=== PATIENT | female | born 1935 | race Caucasian/White ===

== ENCOUNTER 2016-06-10 12:35 | Inpatient (IN) | payer OTHER ==
[~2016-06-10] VITALS: Ht 152.4 cm; Wt 73.0 kg
[~2016-06-10 12:35] MED LIST: ACET-1311 PO; ACYC400T PO; ASPCH81X PO; CALC-220 PO; CRAN500C2 PO; LEVO75TA PO; LSN/2025 PO; MAGN400T24 PO; METR0.7527 TOP; MULT-188 PO; MULT-614 PO; OMEG500C2 PO; PRLSR20 PO
[2016-06-10] MEDS ORDERED: SODIUM CHLORIDE 0.9% 1000ML 250 ML IV STA (13:14)
[2016-06-10] MEDS ORDERED: SODIUM CHLORIDE 0.9% 1000ML 1,000 ML IV STA (13:14)
--- NOTE | 2016-06-10 13:23 | EMERGENCY ROOM VISIT NOTE ---
History Report prepared by Jaimie: Roseanna Almeida Under the Supervision of: Dr. Javid Grimes M.D. First contact with patient: 13:09 Chief Complaint: GI ASSESSMENT Stated Complaint: STARTED W/STOMACH CRAMPS,HAD BM &THEN DIARRHEA History of Present Illness The patient is an 81 year old female who presents to the Emergency Room with complaints of persistent rectal bleeding that began prior to arrival. He currently rates his discomfort as a 5/10 in severity. Per records, the patient was evaluated at her PCP's office today. She has been complaining of lower abdominal cramping, and then had diarrhea. The patient notes that she has noticed bright red blood in the toilet since the diarrhea and each time she goes to the bathroom. She denies any rectal pain, vomiting, or fever. The patient was found to have internal hemorrhoids. The patient states that she takes aspirin daily, but denies being on any blood thinners. Source of History: patient, spouse/significant other Onset: prior to arrival Position: other (rectal) Symptom Intensity: 5/10 Quality: other (bleeding) Timing: other (persistent) Associated Symptoms: + abdominal pain, + diarrhea, No fevers, No vomiting Review of Systems See HPI for pertinent positives & negatives. A total of 10 systems reviewed and were otherwise negative. Past Medical & Surgical Medical Problems: (1) Hypothyroidism (2) Kidney disease Old medical records were reviewed. Nurse's notes were reviewed and I agree with. Family History Diabetes mellitus FHx: cancer Hypertension Social History Smoking Status: Never Smoker Alcohol Use: none Marital Status: Housing Status: lives with family Occupation Status: retired Current/Historical Medications Scheduled Aspirin (Aspirin Chewable), 81 MG PO DAILY Cranberry (Vaccinium Macrocarp (Cranberry), 500 MG PO DAILY Hctz/Lisinopril (Lisinopril/Hctz 20/25 Mg), 1 TAB PO DAILY Levothyroxine Sodium (Synthroid), 75 MCG PO DAILY Metronidazole (Topical) (Metrogel), 1 APPLN TOP BID Multiple Vitamins W/ Minerals (Ocuvite), 1 TABLET PO DAILY Multiple Vitamins W/ Minerals (Centrum Silver Ultra Wome), 1 TABLET PO DAILY Jeddo-3 Fatty Acids (Fish Oil), 1,000 MG PO BID Omeprazole (Prilosec), 20 MG PO DAILY Rosuvastatin Calcium (Crestor), 1 TAB PO BID Scheduled PRN Acetaminophen (Tylenol), 650 MG PO Q6H PRN Acyclovir (Acyclovir), 400 MG PO BID PRN Miscellaneous Medications Famotidine (Pepcid), 20 MG PO Loratadine (Loratadine) Allergies Coded Allergies: No Known Allergies (Verified , 06/10/16) Physical Exam Vital Signs Date Time Temp Pulse Resp B/P Pulse Ox O2 Delivery O2 Flow Rate FiO2 06/10/16 15:45 80 18 121/59 99 Room Air 06/10/16 14:03 86 18 132/67 97 Room Air 06/10/16 12:49 36.7 96 18 130/72 99 Room Air Physical Exam General: Well developed well nourished, non-ill appearing older female in no acute distress, breathing comfortably on room air. Normal speech HEENT: Normal cephalic atraumatic. Pupils are equal round and reactive to light. Sclerae are anicteric. Extraocular movements are intact. Oropharynx is pink with moist mucous membranes. No swelling of the mouth lips or tongue. Neck: Supple with a midline trachea. No meningeal signs or stiffness, no JVD or bruits. No Stridor. Chest: Clear to auscultation bilaterally. No wheezes or rhonchi. No increased work of breathing. Heart: regular rate and rhythm. Abdomen: Soft nontender, nondistended without rebound guarding or rigidity. Extremities: No cyanosis clubbing or edema. No calf tenderness or assymetry Spine/Back. Non tender to palpation. No CVA tenderness Skin: Good turgor without rashes. Neurologic exam: Cranial nerves two through 12 are intact. Motor and sensation are intact and symmetrical throughout. Medical Decision & Procedures ER Provider Diagnostic Interpretation: CT results as stated below per my review and radiologist interpretation: CT SCAN OF THE ABDOMEN AND PELVIS WITH IV CONTRAST CLINICAL HISTORY: Lower abdominal pain. Diarrhea. COMPARISON STUDY: MRCP dated 05/18/2012. TECHNIQUE: Following the IV administration of 94 cc of Optiray 320, CT scan of the abdomen and pelvis is performed from the lung bases to the proximal femora. Images are reviewed in the axial, sagittal, and coronal planes. IV contrast was administered without complication. Automated dose control exposure was utilized. CT DOSE: 526.68 mGy.cm FINDINGS: Lung bases: The heart is normal in size and without pericardial effusion. The mitral annulus is densely calcified. The lung bases are clear noting dependent atelectasis. Liver: The contrast-enhanced liver is normal in size, contour, and attenuation. There is no intrahepatic biliary ductal dilatation. The hepatic veins and portal veins are patent. Gallbladder: Surgically absent noting clips in the gallbladder fossa. Spleen: Normal in size and attenuation. Pancreas: Moderately atrophic and grossly unremarkable. Adrenal glands: Unremarkable. Kidneys: The contrast enhanced kidneys demonstrate cortical atrophy and are without hydronephrosis. The kidneys enhance symmetrically. Abdominal vasculature: The abdominal aorta is normal in course and caliber noting moderate atherosclerotic calcification. Bowel: The small bowel and colon are normal in course and caliber. There is a long segment of colonic wall thickening and edema seen extending from the distal transverse colon to the distal descending colon. There is associated pericolonic inflammation as well as trace pericolic fluid. The appearance is consistent with a nonspecific colitis. The appendix is well-visualized and normal. Peritoneum: There is no intraperitoneal free air or abdominal ascites. Lymphadenopathy: None. Pelvic viscera: The bladder, uterus, and adnexa are normal as visualized. There are prominent gonadal vessels in the pelvis. Calcified phleboliths are observed. Skeletal structures: The skeletal structures are osteopenic. Sclerotic change is observed in the sacroiliac joints and pubic symphysis. There is mild lumbosacral spondylosis. No lytic or blastic lesions are seen. IMPRESSION: Findings are consistent with nonspecific colitis of the left colon. The could be on an infectious, inflammatory, or ischemic basis. Clinical correlation will be required. Electronically signed by: Kunal Monteiro M.D. 06/10/2016 3:44 PM Dictated Date/Time: 06/10/2016 3:39 PM Laboratory Results 06/10/16 13:32 Red Blood Count 3.91, Mean Corpuscular Volume 92.6, Mean Corpuscular Hemoglobin 31.2, Mean Corpuscular Hemoglobin Concent 33.7, Mean Platelet Volume 9.9, Neutrophils (%) (Auto) 61.9, Lymphocytes (%) (Auto) 25.0, Monocytes (%) (Auto) 11.1, Eosinophils (%) (Auto) 1.5, Basophils (%) (Auto) 0.3, Neutrophils # (Auto ) 6.32, Lymphocytes # (Auto) 2.55, Monocytes # (Auto) 1.13, Eosinophils # (Auto ) 0.15, Basophils # (Auto) 0.03 06/10/16 13:32 Test 06/10/16 13:32 White Blood Count 10.20 K/uL (4.8-10.8) Red Blood Count 3.91 M/uL (4.2-5.4) Hemoglobin 12.2 g/dL (12.0-16.0) Hematocrit 36.2 % (37-47) Mean Corpuscular Volume 92.6 fL (80-100) Mean Corpuscular Hemoglobin 31.2 pg (25-34) Mean Corpuscular Hemoglobin Concent 33.7 g/dl (32-36) Platelet Count 320 K/uL (130-400) Mean Platelet Volume 9.9 fL (7.4-10.4) Neutrophils (%) (Auto) 61.9 % Lymphocytes (%) (Auto) 25.0 % Monocytes (%) (Auto) 11.1 % Eosinophils (%) (Auto) 1.5 % Basophils (%) (Auto) 0.3 % Neutrophils # (Auto) 6.32 K/uL (1.4-6.5) Lymphocytes # (Auto) 2.55 K/uL (1.2-3.4) Monocytes # (Auto) 1.13 K/uL (0.11-0.59) Eosinophils # (Auto) 0.15 K/uL (0-0.5) Basophils # (Auto) 0.03 K/uL (0-0.2) RDW Standard Deviation 48.6 fL (36.4-46.3) RDW Coefficient of Variation 14.3 % (11.5-14.5) Immature Granulocyte % (Auto) 0.2 % Immature Granulocyte # (Auto) 0.02 K/uL (0.00-0.02) Prothrombin Time 11.3 SECONDS (9.0-12.0) Prothromb Time International Ratio 1.1 (0.9-1.1) Activated Partial Thromboplast Time 26.1 SECONDS (21.0-31.0) Partial Thromboplastin Ratio 1.0 Anion Gap 5.0 mmol/L (3-11) Est Creatinine Clear Calc Drug Dose 29.1 ml/min Estimated GFR () 41.0 Estimated GFR (Non- 35.4 BUN/Creatinine Ratio 23.2 (10-20) Calcium Level 9.1 mg/dl (8.5-10.1) Total Bilirubin 0.9 mg/dl (0.2-1) Direct Bilirubin 0.2 mg/dl (0-0.2) Aspartate Amino Transf (AST/SGOT) 15 U/L (15-37) Alanine Aminotransferase (ALT/SGPT) 27 U/L (12-78) Alkaline Phosphatase 107 U/L (45-117) Total Protein 7.1 gm/dl (6.4-8.2) Albumin 3.6 gm/dl (3.4-5.0) Lipase 112 U/L (73-393) Laboratory studies as stated above per my review. Medications Administered Medications (Trade) Dose Ordered Sig/Matti Route Start Time Stop Time Status Last Admin Dose Admin Sodium Chloride 250 ml @ 999 mls/hr Q16M STAT IV 06/10/16 13:14 06/10/16 13:29 DC 06/10/16 14:01 999 MLS/HR Sodium Chloride (Nss 1000ml) 1,000 ml @ 100 mls/hr Q10H STAT IV 06/10/16 13:14 06/10/16 23:13 06/10/16 14:01 100 MLS/HR ED Course 1310: Past medical records reviewed. The patient was evaluated in room B12B, and a complete history and physical examination were performed. 1314: Ordered Sodium Chloride 1000 ml @ 100 mls/hr IV, Sodium Chloride 250 ml @ 999 mls/hr IV. 1404: I reevaluated the patient at this time. She is going to have a CT scan. 1552: I reevaluated the patient and she is resting comfortably. I discussed all the exam findings with her and I discussed the treatment plan. She verbalized complete understanding and agreement. She will be evaluated for further treatment. 1644: I discussed the patients case with Avel Whitmore. She is going to evaluate the patient for further treatment. Medical Decision Differentials include, but are not limited to; GI bleed, hemorrhoid, anemia, diverticulitis, electrolyte or metabolic abnormality. This patient comes in as described above. She sent over from the primary care' s office after having abdominal cramping elevated white count and GI bleeding. This started yesterday. She had multiple episodes of bloody stool after having some constipation than diarrhea. She's had some cramping she seems a feeling a lot better at present. She is afebrile. She's been normotensive and has had stable vital signs. IV access established and she was hydrated with IV normal saline. Multiple blood testing was obtained. Her white count is not elevated. She has no significant anemia. She's no acute electrolyte or metabolic abnormalities. I did a CAT scan which shows colitis the left:. I do think she needs to be admitted for treatment and observation of GI bleeding and colitis. Her abdomen is non-tender at this point. I did consult the [facility] hospitalist and she will be seen in the ER. Consults Time Called: 163 Consulting Physician: Avel Whitmore Returned Call: 1644 I discussed the patients case with Avel Whitmore. She is going to evaluate the patient for further treatment. Impression Primary Impression: GI bleed Additional Impression: Colitis Scribe Attestation The scribe's documentation has been prepared under my direction and personally reviewed by me in its entirety. I confirm that the note above accurately reflects all work, treatment, procedures, and medical decision making performed by me. Departure Information Dispostion Being Evaluated By Hospitalist Referrals Marisol Mcnair M.D. (PCP) Problem Qualifiers
[2016-06-10 13:47] LABS: BASO % 0.3 %; BASO ABS # 0.03 K/uL (0-0.2); COMPLETE YES; EOS % 1.5 %; HEMATOCRIT 36.2 % (37-47); IG% 0.2 %; LYMPH ABS # 2.55 K/uL (1.2-3.4); MEAN CELL VOLUME 92.6 fL (80-100); MEAN CORPUSCULAR HEMOGLOBIN 31.2 pg (25-34); MEAN CORPUSCULAR HGB CONC 33.7 g/dl (32-36); MEAN PLATELET VOLUME 9.9 fL (7.4-10.4); MONO % 11.1 %; NEUT % 61.9 %; PLATELET COUNT 320 K/uL (130-400); RED BLOOD COUNT 3.91 M/uL (4.2-5.4)
[2016-06-10] MEDS ORDERED: ROSU5TAB PO (13:55)
[2016-06-10] MEDS ORDERED: LORA10CA10 (13:55)
[2016-06-10] MEDS ORDERED: FAMO20TA11 PO (13:55)
[2016-06-10 14:07] LABS: INR 1.1 (0.9-1.1); PROTHROMBIN TIME (PATIENT) 11.3 SECONDS (9.0-12.0)
[2016-06-10 14:13] LABS: BUN/CREATININE RATIO 23.2 (10-20); CALCIUM 9.1 mg/dl (8.5-10.1); CREATININE 1.4 mg/dl (0.60-1.20); POTASSIUM 4.2 mmol/L (3.5-5.1)
[2016-06-10] MEDS ORDERED: OPTIRAY 320 IV PRN (14:15)
--- NOTE | 2016-06-10 15:47 | DIAGNOSTIC IMAGING REPORT ---
CT SCAN OF THE ABDOMEN AND PELVIS WITH IV CONTRAST CLINICAL HISTORY: Lower abdominal pain. Diarrhea. COMPARISON STUDY: MRCP dated 05/18/2012. TECHNIQUE: Following the IV administration of 94 cc of Optiray 320, CT scan of the abdomen and pelvis is performed from the lung bases to the proximal femora. Images are reviewed in the axial, sagittal, and coronal planes. IV contrast was administered without complication. Automated dose control exposure was utilized. CT DOSE: 526.68 mGy.cm FINDINGS: Lung bases: The heart is normal in size and without pericardial effusion. The mitral annulus is densely calcified. The lung bases are clear noting dependent atelectasis. Liver: The contrast-enhanced liver is normal in size, contour, and attenuation. There is no intrahepatic biliary ductal dilatation. The hepatic veins and portal veins are patent. Gallbladder: Surgically absent noting clips in the gallbladder fossa. Spleen: Normal in size and attenuation. Pancreas: Moderately atrophic and grossly unremarkable. Adrenal glands: Unremarkable. Kidneys: The contrast enhanced kidneys demonstrate cortical atrophy and are without hydronephrosis. The kidneys enhance symmetrically. Abdominal vasculature: The abdominal aorta is normal in course and caliber noting moderate atherosclerotic calcification. Bowel: The small bowel and colon are normal in course and caliber. There is a long segment of colonic wall thickening and edema seen extending from the distal transverse colon to the distal descending colon. There is associated pericolonic inflammation as well as trace pericolic fluid. The appearance is consistent with a nonspecific colitis. The appendix is well-visualized and normal. Peritoneum: There is no intraperitoneal free air or abdominal ascites. Lymphadenopathy: None. Pelvic viscera: The bladder, uterus, and adnexa are normal as visualized. There are prominent gonadal vessels in the pelvis. Calcified phleboliths are observed. Skeletal structures: The skeletal structures are osteopenic. Sclerotic change is observed in the sacroiliac joints and pubic symphysis. There is mild lumbosacral spondylosis. No lytic or blastic lesions are seen. IMPRESSION: Findings are consistent with nonspecific colitis of the left colon. The could be on an infectious, inflammatory, or ischemic basis. Clinical correlation will be required. Electronically signed by: Kunal Monteiro M.D. 06/10/2016 3:44 PM Dictated Date/Time: 06/10/2016 3:39 PM
[2016-06-10] MEDS ORDERED: ONDANSETRON INJ 2 MG/ML 2 ML VIAL IV PRN (17:45)
[2016-06-10] MEDS ORDERED: TYL325X PO (17:53)
[2016-06-10] MEDS ORDERED: LORA-749 PO (17:53)
[2016-06-10] MEDS ORDERED: CRS10 PO (17:53)
[2016-06-10] MEDS ORDERED: FLUO0.0566 TOP (17:53)
--- NOTE | 2016-06-10 18:43 | History and Physical ---
History & Physical Date & Time of Service: Jun 10, 2016 at 17:57 Chief Complaint: Started W/Stomach Cramps,Had Bm &Then Diarrhea Primary Care Physician: Marisol Mcnair M.D. History of Present Illness Source: patient, clinic records This is an 81 year old female with PMH of HTN, HL, CKD stage III, hypothyroidism , and other problems listed below who presents to the ED with rectal bleeding. Patient was in her usual state of health until yesterday at 1 pm she developed low abdominal cramping with the urge to defecate. She strained for a hard BM and after that developed multiple episodes of diarrhea. Initially had stool then changed to blood. She noticed a "blob" of red blood in the toilet and bright red blood on the toilet tissue. This happened twice yesterday evening, 1- 2x overnight, and twice this am with last episode at 9 am. Pt was seen in clinic by Shani Lorenzo PA-C today. Per her note rectal exam showed non- thrombosed external hemorrhoid, internal hemorrhoid also palpated, FOBT negative. Outpatient labs today showed WBC of 12K so patient was sent to the ER. Patient states abdominal cramping is intermittent today. No cramps at present. Denies post-prandial abdominal pain. No fever, chills, dizziness, fatigue, weight loss, oral sores, swallowing difficulty, chest pain, cough, SOB , reflux, nausea, vomiting, rectal pain, melena, urinary changes. Pt takes daily baby aspirin but no other NSAIDs or blood thinner. Patient was in [place] yesterday visiting family when symptoms started. She ate cambodian toast for breakfast yesterday and pulled pork sandwich for lunch. also had the pork and felt nauseous but no diarrhea. Pt only ate crackers today. No recent antibiotics. Pt has hx of gallstone pancreatitis and underwent laparoscopic cholecystectomy in 2012. No other other abdominal surgery. No hx of prior GIB. [place] in 2008 showed adenomatous polyp. [place] by Dr. Vilchis in 2012 showed internal hemorrhoids, otherwise normal exam. Past Medical/Surgical History Medical Problems: (1) CKD (chronic kidney disease), stage III Status: Chronic (2) Dyslipidemia Status: Chronic (3) GERD (gastroesophageal reflux disease) Status: Chronic (4) Hypertension Status: Chronic (5) Hypertensive heart disease Status: Chronic (6) Hypothyroidism Status: Chronic (7) Osteoporosis Status: Chronic Surgical Problems: (1) S/P colonoscopy Permanent Comment: 01/2013- internal hemorrhoids, otherwise normal Status: Chronic (2) S/P colonoscopy with polypectomy Permanent Comment: 2008- polyp x 1 adenomatous Status: Chronic (3) S/P dilatation and curettage Status: Chronic (4) S/P total knee arthroplasty Status: Chronic Family History Diabetes mellitus FH: colon cancer SON ( of colon CA) FHx: cancer Hypertension Social History Smoking Status: Never Smoker Alcohol Use: none Drug Use: none Marital Status: Housing status: lives with significant other Occupational Status: retired Immunizations History of Influenza Vaccine: Yes History of Tetanus Vaccine?: Yes History of Pneumococcal: Yes History of Hepatitis B Vaccine: No Multi-Drug Resistant Organisms History of MDRO: No Allergies Coded Allergies: No Known Allergies (Verified , 06/10/16) Home Medications Scheduled Aspirin (Aspirin Chewable), 81 MG PO DAILY Famotidine (Pepcid), 20 MG PO BID Hctz/Lisinopril (Lisinopril/Hctz 20/25 Mg), 1 TAB PO DAILY Levothyroxine Sodium (Synthroid), 75 MCG PO DAILY Loratadine & Pseudoephedrine (Claritin-D 24 Hour), 1 TAB PO DAILY Metronidazole (Topical) (Metrogel), 1 APPLN TOP BID Multiple Vitamins W/ Minerals (Centrum Silver Ultra Wome), 1 TABLET PO DAILY Rosuvastatin Calcium (Crestor), 10 MG PO 2XWK Scheduled PRN Acetaminophen (Tylenol), 650 MG PO Q6 PRN for Pain Acyclovir (Acyclovir), 400 MG PO BID PRN Fluocinonide (Fluocinonide), 1 APPLN TOP BID PRN for rash Review of Systems Ten point ROS performed with pertinent positives and negatives noted in HPI. Physical Exam Vital Signs Date Time Temp Pulse Resp B/P Pulse Ox O2 Delivery O2 Flow Rate FiO2 06/10/16 15:45 80 18 121/59 99 Room Air 06/10/16 14:03 86 18 132/67 97 Room Air 06/10/16 12:49 36.7 96 18 130/72 99 Room Air General Appearance: WD/WN, no apparent distress, + pertinent finding (pleasant alert 81 year old female, appears comfortable lying in bed, no distress) Head: normocephalic, atraumatic Eyes: normal inspection, sclerae normal ENT: hearing grossly normal, pharynx normal Neck: supple Respiratory/Chest: lungs clear, normal breath sounds, no respiratory distress, no accessory muscle use Cardiovascular: regular rate, rhythm, no murmur Abdomen/GI: normal bowel sounds, non tender, soft Extremities/Musculoskelatal: no calf tenderness, normal capillary refill, no pedal edema, + pertinent finding (DP pulses 2+) Neurologic/Psych: alert, normal mood/affect, oriented x 3, + pertinent finding (grossly nonfocal ) Skin: normal color, warm/dry, + pertinent finding (right cheek tiny flat area of erythema s/p recent skin bx) Diagnostics Laboratory Results Results Past 24 Hours Test 06/10/16 13:32 Range/Units White Blood Count 10.20 4.8-10.8 K/uL Red Blood Count 3.91 4.2-5.4 M/uL Hemoglobin 12.2 12.0-16.0 g/dL Hematocrit 36.2 37-47 % Mean Corpuscular Volume 92.6 80-100 fL Mean Corpuscular Hemoglobin 31.2 25-34 pg Mean Corpuscular Hemoglobin Concent 33.7 32-36 g/dl Platelet Count 320 130-400 K/uL Mean Platelet Volume 9.9 7.4-10.4 fL Neutrophils (%) (Auto) 61.9 % Lymphocytes (%) (Auto) 25.0 % Monocytes (%) (Auto) 11.1 % Eosinophils (%) (Auto) 1.5 % Basophils (%) (Auto) 0.3 % Neutrophils # (Auto) 6.32 1.4-6.5 K/uL Lymphocytes # (Auto) 2.55 1.2-3.4 K/uL Monocytes # (Auto) 1.13 0.11-0.59 K/uL Eosinophils # (Auto) 0.15 0-0.5 K/uL Basophils # (Auto) 0.03 0-0.2 K/uL RDW Standard Deviation 48.6 36.4-46.3 fL RDW Coefficient of Variation 14.3 11.5-14.5 % Immature Granulocyte % (Auto) 0.2 % Immature Granulocyte # (Auto) 0.02 0.00-0.02 K/uL Prothrombin Time 11.3 9.0-12.0 SECONDS Prothromb Time International Ratio 1.1 0.9-1.1 Activated Partial Thromboplast Time 26.1 21.0-31.0 SECONDS Partial Thromboplastin Ratio 1.0 Sodium Level 140 136-145 mmol/L Potassium Level 4.2 3.5-5.1 mmol/L Chloride Level 103 98-107 mmol/L Carbon Dioxide Level 32 21-32 mmol/L Anion Gap 5.0 3-11 mmol/L Blood Urea Nitrogen 32 7-18 mg/dl Creatinine 1.40 0.60-1.20 mg/dl Est Creatinine Clear Calc Drug Dose 29.1 ml/min Estimated GFR () 41.0 Estimated GFR (Non- 35.4 BUN/Creatinine Ratio 23.2 10-20 Random Glucose 126 70-99 mg/dl Calcium Level 9.1 8.5-10.1 mg/dl Total Bilirubin 0.9 0.2-1 mg/dl Direct Bilirubin 0.2 0-0.2 mg/dl Aspartate Amino Transf (AST/SGOT) 15 15-37 U/L Alanine Aminotransferase (ALT/SGPT) 27 12-78 U/L Alkaline Phosphatase 107 45-117 U/L Total Protein 7.1 6.4-8.2 gm/dl Albumin 3.6 3.4-5.0 gm/dl Lipase 112 73-393 U/L Diagnostic Radiology CT SCAN OF THE ABDOMEN AND PELVIS WITH IV CONTRAST CLINICAL HISTORY: Lower abdominal pain. Diarrhea. COMPARISON STUDY: MRCP dated 05/18/2012. TECHNIQUE: Following the IV administration of 94 cc of Optiray 320, CT scan of the abdomen and pelvis is performed from the lung bases to the proximal femora. Images are reviewed in the axial, sagittal, and coronal planes. IV contrast was administered without complication. Automated dose control exposure was utilized. CT DOSE: 526.68 mGy.cm FINDINGS: Lung bases: The heart is normal in size and without pericardial effusion. The mitral annulus is densely calcified. The lung bases are clear noting dependent atelectasis. Liver: The contrast-enhanced liver is normal in size, contour, and attenuation. There is no intrahepatic biliary ductal dilatation. The hepatic veins and portal veins are patent. Gallbladder: Surgically absent noting clips in the gallbladder fossa. Spleen: Normal in size and attenuation. Pancreas: Moderately atrophic and grossly unremarkable. Adrenal glands: Unremarkable. Kidneys: The contrast enhanced kidneys demonstrate cortical atrophy and are without hydronephrosis. The kidneys enhance symmetrically. Abdominal vasculature: The abdominal aorta is normal in course and caliber noting moderate atherosclerotic calcification. Bowel: The small bowel and colon are normal in course and caliber. There is a long segment of colonic wall thickening and edema seen extending from the distal transverse colon to the distal descending colon. There is associated pericolonic inflammation as well as trace pericolic fluid. The appearance is consistent with a nonspecific colitis. The appendix is well-visualized and normal. Peritoneum: There is no intraperitoneal free air or abdominal ascites. Lymphadenopathy: None. Pelvic viscera: The bladder, uterus, and adnexa are normal as visualized. There are prominent gonadal vessels in the pelvis. Calcified phleboliths are observed. Skeletal structures: The skeletal structures are osteopenic. Sclerotic change is observed in the sacroiliac joints and pubic symphysis. There is mild lumbosacral spondylosis. No lytic or blastic lesions are seen. IMPRESSION: Findings are consistent with nonspecific colitis of the left colon. The could be on an infectious, inflammatory, or ischemic basis. Clinical correlation will be required. Impression Assessment and Plan COLITIS CT a/p shows nonspecific colitis of the left colon ? 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 diff toxin Received IVF's in ER Will place on empiric Cipro and Flagyl Clear liquid diet Consult GI RECTAL BLEEDING Likely lower GI bleeding due to colitis vs. hemorrhoidal bleeding Hemodynamically stable; Hg stable- 12.2 Rectal exam in clinic today- non-thrombosed external hemorrhoid, internal hemorrhoid also palpated, FOBT negative Last colonoscopy in 2012 showed internal hemorrhoids, otherwise normal No further bleeding since 9 am today Hold aspirin Recheck H/H at 2100 GERD Controlled per patient Continue famotidine HYPERTENSION BP is stable Continue lisinopril Hold HCTZ for now to avoid dehydration CKD STAGE III Creat is 1.4, stable- was 1.3 recent outpatient lab, runs 1.1-1.4 Monitor renal function DYSLIPIDEMIA Continue statin HYPOTHYROIDISM Continue levothyroxine DVT PROPHYLAXIS SCD's due to rectal bleeding CODE STATUS DNR per my discussion with the patient DISPOSITION Follows with Dr. Mcnair for primary care Patient seen in collaboration with Dr. Renner. Please see her addendum. I have seen and examined the patient and have discussed the case with the provider above. The patient is presenting with an acute L sided colitis with willian-umbilical to L sided abdominal tenderness on exam that is improved with bowel movement. Food borne illness is less likely, however, acute diverticulitis may be present. No recent use of antibiotics making c-diff less likely but is still being checked. Ischemic colitis is also a possibility. No obvious hypotensive episodes recently or illnesses. Lactate pending and IVF were ordered overnight to maintain good blood perfusion. Agree with Cipro/ Flagyl in either case. IBD is possible but less likely in the setting of a normal colonoscopy in recent years and no extra-GI symptoms. Appreciate GI consult with recs. Renner, DO Level of Care Med/Surg Resuscitation Status DO NOT RESUSCITATE VTE Prophylaxis VTE Risk Assessment Done? Y/N: Yes Risk Level: Moderate Given or contraindicated: SCD's, Contraindicated
[2016-06-10] MEDS ORDERED: IV FLUIDS COMPLETED PRN (18:45)
[2016-06-10 19:10] VITALS: BP 113/67; PULSE 91; TEMP 36.5; O2SAT 99; Ht 152.4 cm; Wt 73.0 kg
[2016-06-10] MEDS: CIPROFLOXACIN / D5W 400 MG in PREMIXED IN D5W 200 ML IV SCH (20:21)
[2016-06-10] MEDS: METRONIDAZOLE / NSS 500 MG in PREMIXED NSS 100 ML IV SCH (20:21)
[2016-06-10] MEDS ORDERED: NURSING VERBAL MED ORDER ONE ×2 (21:00)
[2016-06-10] MEDS ORDERED: ROSUVASTATIN CALCIUM 10 MG TAB PO SCH (21:00)
[2016-06-10] MEDS ORDERED: MoRPHine SULFATE 2 MG/ML CARP IV PRN (21:15)
[2016-06-10 21:21] LABS: HEMATOCRIT 36.1 % (37-47)
[2016-06-10] MEDS: ACETAMINOPHEN 325 MG TAB PO PRN (21:42)
[2016-06-10] MEDS: FAMOTIDINE 20 MG TAB PO SCH (21:43)
[2016-06-10] MEDS: METRONIDAZOLE 0.75% TOPICAL GEL 45 GM TUBE TOP SCH (21:43)
[2016-06-10 22:26] VITALS: O2SAT 95
[2016-06-10 23:15] VITALS: BP 100/66; PULSE 84; TEMP 36.7; O2SAT 94
[2016-06-11] VITALS (8 sets, daily range): BP systolic 96–150; BP diastolic 61–92; PULSE 62–87; TEMP 36.3–36.7; O2SAT 91–97
[2016-06-11] MEDS: SODIUM CHLORIDE 0.9% 1000ML 1,000 ML IV SCH ×2 (01:25→07:41)
[2016-06-11] MEDS: METRONIDAZOLE / NSS 500 MG in PREMIXED NSS 100 ML IV SCH ×3 (04:37→20:39)
[2016-06-11 07:08] LABS: HEMATOCRIT 33.7 % (37-47); MEAN CELL VOLUME 92.8 fL (80-100); MEAN CORPUSCULAR HEMOGLOBIN 30.6 pg (25-34); MEAN CORPUSCULAR HGB CONC 32.9 g/dl (32-36); MEAN PLATELET VOLUME 9.7 fL (7.4-10.4); PLATELET COUNT 308 K/uL (130-400); RED BLOOD COUNT 3.63 M/uL (4.2-5.4); WHITE BLOOD COUNT 7.88 K/uL (4.8-10.8)
[2016-06-11] MEDS: LEVOTHYROXINE 75 MCG TAB PO SCH (07:40)
[2016-06-11 07:52] LABS: BUN/CREATININE RATIO 18.7 (10-20); CALCIUM 8.1 mg/dl (8.5-10.1); CREATININE 0.99 mg/dl (0.60-1.20); POTASSIUM 3.7 mmol/L (3.5-5.1)
[2016-06-11] MEDS: CIPROFLOXACIN / D5W 400 MG in PREMIXED IN D5W 200 ML IV SCH ×2 (09:05→20:39)
[2016-06-11] MEDS: CEROVITE ADV FORMULA TAB PO SCH (09:06)
[2016-06-11] MEDS: LORATADINE/PSEUDOEPHEDRINE 1 TAB TABCR PO SCH (09:06)
[2016-06-11] MEDS: LISINOPRIL 20 MG TAB PO SCH (09:06)
[2016-06-11] MEDS: FAMOTIDINE 20 MG TAB PO SCH ×2 (09:06→20:40)
[2016-06-11] MEDS: METRONIDAZOLE 0.75% TOPICAL GEL 45 GM TUBE TOP SCH ×2 (09:07→20:40)
--- NOTE | 2016-06-11 10:43 | Gastrointestinal Consultation ---
Gastrointestinal Consultation Date of Consultation: Jun 11, 2016 Attending Physician: Seema Mancilla Consulting Physician: Gabriel Pimentel Reason for Consultation: Colitis History of Present Illness Patient is a 81 year old female w PMHx of HTN, hyperlipidemia, CKD III, hypothyroidism, GERD, osteoporosis who was referred to ED by ANA CRISTINA Chavis for rectal bleeding and increased WBC on outpt labs. Pt was at [place] on Wednesday. Had pulled pork sandwich for lunch and felt a little nauseous. Had taken a walk after that, then after walk had lower abd cramping. Went to bathroom to defecate and had to strain a lot to produce a hard stool. She later on continued to have urgency to defecate and went to bathroom again, had semi liquid like stool mixed w blood. Also noted bright red blood when wiping. She continues to have BRBPR q2hrs later on that day. By night decided to come back to [place] to eventually be evaluated by PCP here on Wednesday. Came to see Ms. Lorenzo in [facility] outpt clinic on Wednesday. She had rectal exam which showed ext/int hemorrhoids, FOBT negative. Labs showed stable H/H Cr up to 1.4, WBC 12 thus she was referred to ED for further eval. Eval in ED showed WBC 10, H/H 12/. No coagulopathy. Cr 1.4, LFTs, Lipase normal. CT abd/pelvis showed long segment colonic wall thickening and edema extending from distal transverse colon to distal descending colon, pericolonic inflammation and trace pericolic fluid. She was then admitted for further workup. Started on IVF, Cipro/Flagyl IV antibx for non specific colitis. Cdiff negative, cx pending. Pt continued to have loose to semi formed BM w blood, but not as frequent as on Wednesday. 2 episodes yesterday, this AM had pasty BM w blood. Mild lower abd cramping still but controlled w Tylenol. She is tolerating CL diet, asking for at least cream of rice/wheat. Hx of colonoscopies in 2008 and 2012 - adenomatous polyp, int hemorrhoids. Past Medical/Surgical History Medical Problems: (1) Colitis Status: Acute (2) GI bleed Status: Acute Family History Diabetes mellitus FH: colon cancer SON ( of colon CA) FHx: cancer Hypertension Social History Smoking Status: Never Smoker Alcohol Use: none Drug Use: none Marital Status: Housing Status: lives with family Occupation Status: retired Allergies Coded Allergies: No Known Allergies (Verified , 06/10/16) Current Medications Home Meds and Scripts Medications Dose Route/Sig Max Daily Dose Days Date Category Dose Instructions Tylenol (Acetaminophen) 325 Mg Tab 650 Mg PO Q6 PRN 06/10/16 Reported Claritin-D 24 Hour (Loratadine & Pseudoephedrine) 1 Tab Tab 1 Tab PO DAILY 30 06/10/16 Reported Crestor (Rosuvastatin Calcium) 10 Mg Tab 10 Mg PO 2XWK 06/10/16 Reported Fluocinonide 0.05 % Kimberly 1 Appln TOP BID PRN 30 06/10/16 Reported Pepcid (Famotidine) 20 Mg Tab 20 Mg PO BID 06/10/16 Reported Acyclovir 400 Mg Tab 400 Mg PO BID PRN 05/18/12 Reported 1-2 times a day as needed Lisinopril/Hctz 20/25 Mg (HCTZ/Lisinopril) 1 Ea Tab 1 Tab PO DAILY 05/18/12 Reported Synthroid (Levothyroxine Sodium) 75 Mcg Tab 75 Mcg PO DAILY 05/18/12 Reported Centrum Silver Ultra Wome (Multiple Vitamins W/ Minerals) 1 Tab Tab 1 Tablet PO DAILY 05/18/12 Reported Metrogel (Metronidazole (Topical)) 0.75 % Gel 1 Appln TOP BID 05/18/12 Reported Aspirin Chewable (Aspirin) 81 Mg Chew 81 Mg PO DAILY 05/18/12 Reported Review of Systems Constitutional: No chills, No fever, No weakness Respiratory: No cough, No shortness of breath Cardiac: No chest pain, No edema Abdomen: + GI bleeding, + diarrhea, + nausea, + pain, No vomiting Physical Exam Date Time Temp Pulse Resp B/P Pulse Ox O2 Delivery O2 Flow Rate FiO2 06/11/16 09:55 94 Room Air 06/11/16 08:02 36.3 82 18 99/63 93 Room Air 06/11/16 04:32 36.4 87 18 96/61 91 Room Air 06/11/16 00:00 94 Room Air 06/10/16 23:15 36.7 84 20 100/66 94 Room Air 06/10/16 22:26 95 Room Air 06/10/16 19:10 36.5 91 18 113/67 99 Room Air 06/10/16 18:59 88 18 134/77 95 06/10/16 18:15 91 20 127/67 97 Room Air 06/10/16 15:45 80 18 121/59 99 Room Air 06/10/16 14:03 86 18 132/67 97 Room Air 06/10/16 12:49 36.7 96 18 130/72 99 Room Air General Appearance: WD/WN, no apparent distress Eyes: normal inspection, PERRL, EOMI Neck: supple, no JVD, trachea midline Respiratory/Chest: normal breath sounds, no respiratory distress, no accessory muscle use Cardiovascular: regular rate, rhythm, no gallop, no murmur Abdomen: normal bowel sounds, non tender, soft Extremities: normal inspection, no pedal edema, no calf tenderness Neurologic/Psych: alert, normal mood/affect, oriented x 3 Skin: normal color, no jaundice, no rash Laboratory Results Last 24 Hours Test 06/10/16 13:32 06/10/16 21:10 06/10/16 23:05 06/11/16 06:43 White Blood Count 10.20 K/uL 7.88 K/uL Red Blood Count 3.91 M/uL 3.63 M/uL Hemoglobin 12.2 g/dL 12.1 g/dL 11.1 g/dL Hematocrit 36.2 % 36.1 % 33.7 % Mean Corpuscular Volume 92.6 fL 92.8 fL Mean Corpuscular Hemoglobin 31.2 pg 30.6 pg Mean Corpuscular Hemoglobin Concent 33.7 g/dl 32.9 g/dl Platelet Count 320 K/uL 308 K/uL Mean Platelet Volume 9.9 fL 9.7 fL Neutrophils (%) (Auto) 61.9 % Lymphocytes (%) (Auto) 25.0 % Monocytes (%) (Auto) 11.1 % Eosinophils (%) (Auto) 1.5 % Basophils (%) (Auto) 0.3 % Neutrophils # (Auto) 6.32 K/uL Lymphocytes # (Auto) 2.55 K/uL Monocytes # (Auto) 1.13 K/uL Eosinophils # (Auto) 0.15 K/uL Basophils # (Auto) 0.03 K/uL RDW Standard Deviation 48.6 fL 48.8 fL RDW Coefficient of Variation 14.3 % 14.4 % Immature Granulocyte % (Auto) 0.2 % Immature Granulocyte # (Auto) 0.02 K/uL Prothrombin Time 11.3 SECONDS Prothromb Time International Ratio 1.1 Activated Partial Thromboplast Time 26.1 SECONDS Partial Thromboplastin Ratio 1.0 Sodium Level 140 mmol/L 141 mmol/L Potassium Level 4.2 mmol/L 3.7 mmol/L Chloride Level 103 mmol/L 106 mmol/L Carbon Dioxide Level 32 mmol/L 28 mmol/L Anion Gap 5.0 mmol/L 7.0 mmol/L Blood Urea Nitrogen 32 mg/dl 19 mg/dl Creatinine 1.40 mg/dl 0.99 mg/dl Est Creatinine Clear Calc Drug Dose 29.1 ml/min 40.4 ml/min Estimated GFR () 41.0 62.4 Estimated GFR (Non- 35.4 53.8 BUN/Creatinine Ratio 23.2 18.7 Random Glucose 126 mg/dl 109 mg/dl Calcium Level 9.1 mg/dl 8.1 mg/dl Total Bilirubin 0.9 mg/dl Direct Bilirubin 0.2 mg/dl Aspartate Amino Transf (AST/SGOT) 15 U/L Alanine Aminotransferase (ALT/SGPT) 27 U/L Alkaline Phosphatase 107 U/L Total Protein 7.1 gm/dl Albumin 3.6 gm/dl Lipase 112 U/L Lactic Acid Level 0.8 mmol/L Impression Patient is a 81 year old female admitted for loose stools and bloody BMs, CT evidence of distal transverse to descending colon inflammation ? non specific colitis. Cdiff negative, stool cx pending. Differential diagnoses include: ischemic colitis, infectious colitis, less likely IBD or hemorrhoidal bleeding. Plan - Continue Cipro/Flagyl, IVF support - Advanced to [place] diet, advance as tolerated - Nausea and pain management - May need repeat Colonoscopy in 4-6 week's time. Will discuss w Dr. Pimentel. I have personally seen and examined the patient with CARLOS Fonseca. Her note reflects my exam and findings. I agree with her impression and plan. History most c/w ischemic colitis. Symptoms improving. Gabriel Pimentel M.D.
--- NOTE | 2016-06-11 15:06 | Progress Note ---
Medicine Progress Note Date & Time of Visit: Jun 11, 2016 at 14:58. Subjective Patient seen and examined. Still with some abdominal cramping and loose stools. Denies any further blood in stool. Denies nausea or vomiting. Tolerating diet and would like to advance it. Objective Last 8 Hrs Date Time Temp Pulse Resp B/P Pulse Ox O2 Delivery O2 Flow Rate FiO2 06/11/16 11:28 36.7 81 16 100/67 96 Room Air 06/11/16 09:55 94 Room Air 06/11/16 08:02 36.3 82 18 99/63 93 Room Air Physical Exam: General-awake; alert; NAD Eyes-EOMI; no scleral icterus Neck-no stridor; trachea midline Lungs-CTA bilaterally; no wheezes/crackles Heart-RRR; no m/r/g Abdomen-soft; NTND; nBS Extremities-no c/c/e; no deformity Neuro-no focal deficits Laboratory Results: Last 24 Hours Test 06/10/16 21:10 06/10/16 23:05 06/11/16 06:43 Hemoglobin 12.1 g/dL 11.1 g/dL Hematocrit 36.1 % 33.7 % Lactic Acid Level 0.8 mmol/L White Blood Count 7.88 K/uL Red Blood Count 3.63 M/uL Mean Corpuscular Volume 92.8 fL Mean Corpuscular Hemoglobin 30.6 pg Mean Corpuscular Hemoglobin Concent 32.9 g/dl RDW Standard Deviation 48.8 fL RDW Coefficient of Variation 14.4 % Platelet Count 308 K/uL Mean Platelet Volume 9.7 fL Sodium Level 141 mmol/L Potassium Level 3.7 mmol/L Chloride Level 106 mmol/L Carbon Dioxide Level 28 mmol/L Anion Gap 7.0 mmol/L Blood Urea Nitrogen 19 mg/dl Creatinine 0.99 mg/dl Est Creatinine Clear Calc Drug Dose 40.4 ml/min Estimated GFR () 62.4 Estimated GFR (Non- 53.8 BUN/Creatinine Ratio 18.7 Random Glucose 109 mg/dl Calcium Level 8.1 mg/dl Assessment & Plan COLITIS CT a/p shows nonspecific colitis of the left colon ? infectious, inflammatory, vs ischemic basis C diff negative Stool culture negative Continue Cipro and Flagyl Advance diet as tolerated Consulted GI RECTAL BLEEDING Likely lower GI bleeding due to colitis vs. hemorrhoidal bleeding Hemodynamically stable Hg stable Last colonoscopy in 2012 showed internal hemorrhoids, otherwise normal Hold aspirin for now GERD Controlled per patient Continue famotidine HYPERTENSION BP is stable Continue lisinopril Hold HCTZ for now to avoid dehydration CKD STAGE III Creatinine baseline 1.1-1.4 DYSLIPIDEMIA Continue statin HYPOTHYROIDISM Continue levothyroxine DVT PROPHYLAXIS SCD's due to rectal bleeding CODE STATUS DNR Anticipate discharge home tomorrow. Consultants: Gastroenterology Procedures: CT a/p Findings are consistent with nonspecific colitis of the left colon. The could be on an infectious, inflammatory, or ischemic basis. Clinical correlation will be required. Current Inpatient Medications: Current Inpatient Medications Medications (Trade) Dose Ordered Sig/Matti Route Start Time Stop Time Status Last Admin Dose Admin Ioversol (Optiray 320) 111 ml UD PRN IV 06/10/16 14:15 06/14/16 14:14 Acetaminophen (Tylenol Tab) 650 mg Q4H PRN PO 06/10/16 17:45 07/10/16 17:44 06/10/16 21:42 650 MG Ondansetron HCl (Zofran Inj) 4 mg Q6H PRN IV 06/10/16 17:45 07/10/16 17:44 Famotidine (Pepcid Tab) 20 mg BID PO 06/10/16 21:00 07/10/16 20:59 06/11/16 09:06 20 MG Levothyroxine Sodium (Synthroid Tab) 75 mcg DAILYBB PO 06/11/16 06:30 07/11/16 06:29 06/11/16 07:40 75 MCG Loratadine/ Pseudoephedrine Sulfate (Claritin-D 24 Hour Tab) 1 tab DAILY PO 06/11/16 09:00 07/11/16 08:59 06/11/16 09:06 1 TAB Metronidazole HCl (Metrogel Topical Gel) 1 appln BID TOP 06/10/16 21:00 06/20/16 20:59 06/11/16 09:07 1 APPLN Multivitamins/ Minerals (Multivitamin W/ Minerals Tab) 1 tab DAILY PO 06/11/16 09:00 07/11/16 08:59 06/11/16 09:06 1 TAB Lisinopril 20 mg 20 mg QAM PO 06/11/16 09:00 07/11/16 08:59 06/11/16 09:06 20 MG Ciprofloxacin/ Dextrose 400 mg/ Prmx 200 ml @ 100 mls/hr Q12H IV 06/10/16 20:00 06/20/16 19:59 06/11/16 09:05 100 MLS/HR Metronidazole/Prmx (Flagyl / Nss/ Premixed Nss) 100 ml @ 100 mls/hr Q8H IV 06/10/16 20:00 06/20/16 19:59 06/11/16 13:07 100 MLS/HR Miscellaneous (Iv Fluids Completed) 1 ea PRN PRN N/A 06/10/16 18:45 06/10/17 18:44 Rosuvastatin Calcium (Crestor Tab) 10 mg SuWe@2100 PO 06/10/16 21:00 07/10/16 20:59 06/10/16 21:44 10 MG Morphine Sulfate 2 mg 2 mg Q2H PRN IV 06/10/16 21:15 06/24/16 21:14 Sodium Chloride (Nss 1000ml) 1,000 ml @ 125 mls/hr Q8H IV 06/10/16 23:00 07/10/16 22:59 06/11/16 07:41 125 MLS/HR
[2016-06-11] MEDS ORDERED: NURSING VERBAL MED ORDER ONE (15:30)
[2016-06-11] MEDS ORDERED: IV FLUIDS COMPLETED PRN (15:45)
[2016-06-11] MEDS: ACETAMINOPHEN 325 MG TAB PO PRN (15:51)
[2016-06-12] VITALS: O2SAT 93
[2016-06-12] MEDS: METRONIDAZOLE / NSS 500 MG in PREMIXED NSS 100 ML IV SCH ×2 (04:16→12:02)
[2016-06-12] MEDS: LEVOTHYROXINE 75 MCG TAB PO SCH (06:03)
[2016-06-12 06:06] LABS: HEMATOCRIT 33.4 % (37-47); MEAN CELL VOLUME 93.6 fL (80-100); MEAN CORPUSCULAR HEMOGLOBIN 30.5 pg (25-34); MEAN CORPUSCULAR HGB CONC 32.6 g/dl (32-36); MEAN PLATELET VOLUME 10.1 fL (7.4-10.4); PLATELET COUNT 304 K/uL (130-400); RED BLOOD COUNT 3.57 M/uL (4.2-5.4); WHITE BLOOD COUNT 5.88 K/uL (4.8-10.8)
[2016-06-12 06:52] LABS: BUN/CREATININE RATIO 11.6 (10-20); CALCIUM 8.5 mg/dl (8.5-10.1); CREATININE 1.1 mg/dl (0.60-1.20); POTASSIUM 3.9 mmol/L (3.5-5.1)
[2016-06-12 08:00] VITALS: O2SAT 93
[2016-06-12] MEDS: LORATADINE/PSEUDOEPHEDRINE 1 TAB TABCR PO SCH (08:07)
[2016-06-12] MEDS: CIPROFLOXACIN / D5W 400 MG in PREMIXED IN D5W 200 ML IV SCH (08:07)
[2016-06-12] MEDS: CEROVITE ADV FORMULA TAB PO SCH (08:07)
[2016-06-12] MEDS: LISINOPRIL 20 MG TAB PO SCH (08:07)
[2016-06-12] MEDS: FAMOTIDINE 20 MG TAB PO SCH (08:07)
[2016-06-12] MEDS: METRONIDAZOLE 0.75% TOPICAL GEL 45 GM TUBE TOP SCH (08:09)
[2016-06-12 08:12] VITALS: BP 102/65; PULSE 86; TEMP 36.8; O2SAT 90
--- NOTE | 2016-06-12 09:00 | Gastroenterology Progress Note ---
Progress Note Date of Service: Jun 12, 2016 Subjective Pt evaluation today including: conversation w/ patient, physical exam, chart review, lab review, review of inpatient medication list Pt reported only 1 BM yesterday morning, none since then. She had regular consistency breakfast today and had some abd cramping. No nausea, vomiting or BMs yet today. Review of Systems Constitutional: No chills, No fever Respiratory: No cough, No shortness of breath Cardiac: No chest pain, No edema Abdomen: + pain, + see HPI, No diarrhea, No nausea, No vomiting Medications Current Inpatient Medications Medications (Trade) Dose Ordered Sig/Matti Route Start Time Stop Time Status Last Admin Dose Admin Ioversol (Optiray 320) 111 ml UD PRN IV 06/10/16 14:15 06/14/16 14:14 Acetaminophen (Tylenol Tab) 650 mg Q4H PRN PO 06/10/16 17:45 07/10/16 17:44 06/11/16 15:51 650 MG Ondansetron HCl (Zofran Inj) 4 mg Q6H PRN IV 06/10/16 17:45 07/10/16 17:44 Famotidine (Pepcid Tab) 20 mg BID PO 06/10/16 21:00 07/10/16 20:59 06/12/16 08:07 20 MG Levothyroxine Sodium (Synthroid Tab) 75 mcg DAILYBB PO 06/11/16 06:30 07/11/16 06:29 06/12/16 06:03 75 MCG Loratadine/ Pseudoephedrine Sulfate (Claritin-D 24 Hour Tab) 1 tab DAILY PO 06/11/16 09:00 07/11/16 08:59 06/12/16 08:07 1 TAB Metronidazole HCl (Metrogel Topical Gel) 1 appln BID TOP 06/10/16 21:00 06/20/16 20:59 06/12/16 08:09 1 APPLN Multivitamins/ Minerals (Multivitamin W/ Minerals Tab) 1 tab DAILY PO 06/11/16 09:00 07/11/16 08:59 06/12/16 08:07 1 TAB Lisinopril 20 mg 20 mg QAM PO 06/11/16 09:00 07/11/16 08:59 06/12/16 08:07 20 MG Ciprofloxacin/ Dextrose 400 mg/ Prmx 200 ml @ 100 mls/hr Q12H IV 06/10/16 20:00 06/20/16 19:59 06/12/16 08:07 100 MLS/HR Metronidazole/Prmx (Flagyl / Nss/ Premixed Nss) 100 ml @ 100 mls/hr Q8H IV 06/10/16 20:00 06/20/16 19:59 06/12/16 04:16 100 MLS/HR Miscellaneous (Iv Fluids Completed) 1 ea PRN PRN N/A 06/10/16 18:45 06/10/17 18:44 Rosuvastatin Calcium (Crestor Tab) 10 mg SuWe@2100 PO 06/10/16 21:00 07/10/16 20:59 06/10/16 21:44 10 MG Morphine Sulfate (MoRPHine SULFATE INJ) 2 mg Q2H PRN IV 06/10/16 21:15 06/24/16 21:14 Objective Vital Signs Date Time Temp Pulse Resp B/P Pulse Ox O2 Delivery O2 Flow Rate FiO2 06/12/16 08:12 36.8 86 16 102/65 90 Room Air 06/12/16 00:00 93 Room Air 06/11/16 22:55 36.4 85 18 107/68 93 Room Air 06/11/16 16:00 Room Air 06/11/16 15:23 36.3 82 18 100/64 97 Room Air 06/11/16 11:28 36.7 81 16 100/67 96 Room Air 06/11/16 09:55 94 Room Air Physical Exam General Appearance: WD/WN, no apparent distress Eyes: normal inspection, PERRL, EOMI Neck: supple, no JVD, trachea midline Respiratory/Chest: normal breath sounds, no respiratory distress, no accessory muscle use Cardiovascular: regular rate, rhythm, no gallop, no murmur Abdomen: soft, + abnormal bowel sounds (hypoactive), + tenderness (LLQ) Extremities: normal inspection, no pedal edema, no calf tenderness Neurologic/Psych: alert, normal mood/affect, oriented x 3 Skin: normal color, no jaundice, no rash Laboratory Results Last 24 Hours Test 06/12/16 05:14 White Blood Count 5.88 K/uL Red Blood Count 3.57 M/uL Hemoglobin 10.9 g/dL Hematocrit 33.4 % Mean Corpuscular Volume 93.6 fL Mean Corpuscular Hemoglobin 30.5 pg Mean Corpuscular Hemoglobin Concent 32.6 g/dl RDW Standard Deviation 49.4 fL RDW Coefficient of Variation 14.4 % Platelet Count 304 K/uL Mean Platelet Volume 10.1 fL Sodium Level 144 mmol/L Potassium Level 3.9 mmol/L Chloride Level 109 mmol/L Carbon Dioxide Level 28 mmol/L Anion Gap 7.0 mmol/L Blood Urea Nitrogen 13 mg/dl Creatinine 1.10 mg/dl Est Creatinine Clear Calc Drug Dose 36.4 ml/min Estimated GFR () 54.9 Estimated GFR (Non- 47.4 BUN/Creatinine Ratio 11.6 Random Glucose 112 mg/dl Calcium Level 8.5 mg/dl Assessment and Plan Patient is a 81 year old female admitted for loose stools and bloody BMs, CT evidence of distal transverse to descending colon inflammation ? non specific colitis. Cdiff negative, stool cx pending. Differential diagnoses include: ischemic colitis, infectious colitis, less likely IBD or hemorrhoidal bleeding. Cdiff and Stool cx negative. Pt's BM decreasing, also didn't notice much bleeding yesterday. She does have some cramping on lower abd areas after eating but she said Tylenol is controlling the pain. Denies any N/V. Plan - Continue Cipro/Flagyl, IVF support. May convert antibx to PO form on DC for total of 7 days treatment - Regular diet. - Nausea and pain management - Discussed w Dr. Pimentel, will defer repeat colonoscopy as her last one was quite recent in 2012. - OK to DC from GI standpoint by end of day if she continues to do well. I performed a history and physical examination of the patient. I have discussed the patient's case, impression and plan with CARLOS Fonseca. Her note reflects my findings and plan. Doing very well and tolerating diet. No further bowel issues or bleeding. Gabriel Pimentel MD
[2016-06-12 12:16] VITALS: BP 102/65; PULSE 86; TEMP 36.8; O2SAT 90
--- NOTE | 2016-06-12 12:25 | Discharge Instructions ---
Discharge Instructions Date of Service Jun 12, 2016. Admission Reason for Admission: Colitis Discharge Discharge Diagnosis / Problem: Colitis Discharge Goals Goal(s): Improve disease control Activity Recommendations Activity Limitations: resume your previous activity . Instructions / Follow-Up Instructions / Follow-Up Please follow up with Family Medicine Dr. Mcnair on June 16 at 11:45am. Please start your antibiotic prescriptions this evening and take as prescribed until completion. Current Hospital Diet Patient's current hospital diet: Regular Diet Discharge Diet Recommended Diet: Regular Diet Pending Studies Studies pending at discharge: no Medical Emergencies . Who to Call and When: Medical Emergencies: If at any time you feel your situation is an emergency, please call 911 immediately. . Non-Emergent Contact Non-Emergency issues call your: Primary Care Provider . . "Provider Documentation" section prepared by Seema Banegas. . VTE Core Measure Inpt VTE Proph given/why not?: SCD's, Contraindicated
[2016-06-12] MEDS ORDERED: CPR500 PO (12:28)
[2016-06-12] MEDS ORDERED: METR500T PO (12:28)
--- NOTE | 2016-06-12 13:29 | Discharge Summary ---
Discharge Summary Date of Service Jun 12, 2016. Discharge Summary Admission Date: Jun 11, 2016 at 08:29 Discharge Date: Jun 12, 2016 Discharge Disposition: Home Principal Diagnosis: Colitis Procedures: CT a/p Findings are consistent with nonspecific colitis of the left colon. The could be on an infectious, inflammatory, or ischemic basis. Clinical correlation will be required. Consultations: Gastroenterology Medication Reconciliation New Medications: Ciprofloxacin (Ciprofloxacin HCl) 500 Mg Tab 1 TAB PO Q12 for 6 Days, #11 TABS Metronidazole (Flagyl) 500 Mg Tab 500 MG PO TID for 6 Days, #16 TAB Continued Medications: Acetaminophen (Tylenol) 325 Mg Tab 650 MG PO Q6 PRN for Pain Acyclovir (Acyclovir) 400 Mg Tab 400 MG PO BID PRN 1-2 times a day as needed Aspirin (Aspirin Chewable) 81 Mg Chew 81 MG PO DAILY, TAB Famotidine (Pepcid) 20 Mg Tab 20 MG PO BID, TAB Fluocinonide (Fluocinonide) 0.05 % Kimberly 1 APPLN TOP BID PRN for rash for 30 Days, #60 ML 3 Refills Hctz/Lisinopril (Lisinopril/Hctz 20/25 Mg) 1 Ea Tab 1 TAB PO DAILY, TAB Levothyroxine Sodium (Synthroid) 75 Mcg Tab 75 MCG PO DAILY, TAB Loratadine & Pseudoephedrine (Claritin-D 24 Hour) 1 Tab Tab 1 TAB PO DAILY for 30 Days, #30 TAB 3 Refills Metronidazole (Topical) (Metrogel) 0.75 % Gel 1 APPLN TOP BID Multiple Vitamins W/ Minerals (Centrum Silver Ultra Wome) 1 Tab Tab 1 TABLET PO DAILY Rosuvastatin Calcium (Crestor) 10 Mg Tab 10 MG PO [id number] Admission Information HPI (per Admitting provider): This is an 81 year old female with PMH of HTN, HL, CKD stage III, hypothyroidism , and other problems listed below who presents to the ED with rectal bleeding. Patient was in her usual state of health until yesterday at 1 pm she developed low abdominal cramping with the urge to defecate. She strained for a hard BM and after that developed multiple episodes of diarrhea. Initially had stool then changed to blood. She noticed a "blob" of red blood in the toilet and bright red blood on the toilet tissue. This happened twice yesterday evening, 1- 2x overnight, and twice this am with last episode at 9 am. Pt was seen in clinic by Shani Lorenzo PA-C today. Per her note rectal exam showed non- thrombosed external hemorrhoid, internal hemorrhoid also palpated, FOBT negative. Outpatient labs today showed WBC of 12K so patient was sent to the ER. Patient states abdominal cramping is intermittent today. No cramps at present. Denies post-prandial abdominal pain. No fever, chills, dizziness, fatigue, weight loss, oral sores, swallowing difficulty, chest pain, cough, SOB , reflux, nausea, vomiting, rectal pain, melena, urinary changes. Pt takes daily baby aspirin but no other NSAIDs or blood thinner. Patient was in [place] yesterday visiting family when symptoms started. She ate bengali toast for breakfast yesterday and pulled pork sandwich for lunch. also had the pork and felt nauseous but no diarrhea. Pt only ate crackers today. No recent antibiotics. Pt has hx of gallstone pancreatitis and underwent laparoscopic cholecystectomy in 2012. No other other abdominal surgery. No hx of prior GIB. Camargo in 2008 showed adenomatous polyp. [place] by Dr. Vilchis in 2012 showed internal hemorrhoids, otherwise normal exam. Physical Exam (per Admitting): General Appearance: WD/WN, no apparent distress, + pertinent finding ( pleasant alert 81 year old female, appears comfortable lying in bed, no distress ) Head: normocephalic, atraumatic Eyes: normal inspection, sclerae normal ENT: hearing grossly normal, pharynx normal Neck: supple Respiratory/Chest: lungs clear, normal breath sounds, no respiratory distress, no accessory muscle use Cardiovascular: regular rate, rhythm, no murmur Abdomen/GI: normal bowel sounds, non tender, soft Extremities/Musculoskelatal: no calf tenderness, normal capillary refill, no pedal edema, + pertinent finding (DP pulses 2+) Neurologic/Psych: alert, normal mood/affect, oriented x 3, + pertinent finding (grossly nonfocal ) Skin: normal color, warm/dry, + pertinent finding (right cheek tiny flat area of erythema s/p recent skin bx) Hospital Course Patient was admitted with colitis. CT a/p on admission showed nonspecific colitis of the left colon ? infectious, inflammatory, vs ischemic. C diff was negative. Stool culture was negative. Patient will complete a 7 day course of Ciprofloxacin and Flagyl. GI was consulted and recommended conservative management with antibiotics. Patient initially did have some red blood with stooling; this was felt to be likely 2/2 the colitis vs hemorrhoids and resolved. Hemoglobin remained stable. Patient was continued on her home medications. Patient deemed stable for discharge with Family Medicine follow up. PE on discharge: General- awake; alert; NAD Eyes- EOMI; no scleral icterus Neck- no stridor; trachea midline Lungs- CTA bilaterally; no wheezes/crackles Heart- RRR; no m/r/g Abdomen- soft; NTND; nBS Back- no gross abnormalities Extremities- no c/c/e; no deformity Neuro- no focal deficits Skin- no appreciable rash or bruise . Total time spent on discharge = This includes examination of the patient, discharge planning, medication reconciliation, and communication with other providers. Discharge Instructions Discharge Instructions Date of Service Jun 12, 2016. Admission Reason for Admission: Colitis Discharge Discharge Diagnosis / Problem: Colitis Discharge Goals Goal(s): Improve disease control Activity Recommendations Activity Limitations: resume your previous activity . Instructions / Follow-Up Instructions / Follow-Up Please follow up with Family Medicine Dr. Mcnair on June 16 at 11:45am. Please start your antibiotic prescriptions this evening and take as prescribed until completion. Current Hospital Diet Patient's current hospital diet: Regular Diet Discharge Diet Recommended Diet: Regular Diet Pending Studies Studies pending at discharge: no Medical Emergencies . Who to Call and When: Medical Emergencies: If at any time you feel your situation is an emergency, please call 911 immediately. . Non-Emergent Contact Non-Emergency issues call your: Primary Care Provider . . "Provider Documentation" section prepared by Seema Banegas. . VTE Core Measure Inpt VTE Proph given/why not?: SCD's, Contraindicated Additional Copies To Marisol Mcnair M.D.
[2017-01-26] MEDS ORDERED: ASPI81TA28 PO (08:57)
[2017-01-26] MEDS ORDERED: LISI-787 PO (08:57)
[2017-01-26] MEDS ORDERED: ACET-1311 PO (08:57)
== END 2016-06-12 13:40 | disposition home or self-care (01) | DRG 392 ==
LOC: ENRESERVTM → ENRESERVDT → C.EDB 12:37 → C.MS2W 17:43 → OBSVTOIN 06-11 08:29
PROVIDERS: ADMIT Hospitalist; ATTEND Internal Medicine
DX: K52.9 Noninfective gastroenteritis and colitis, unspecified (principal); I13.10 Hypertensive heart and chronic kidney disease without heart failure, with stage 1 through stage 4 chronic kidney disease, or unspecified chronic kidney disease; N18.3 Chronic kidney disease, stage 3 (moderate); E78.5 Hyperlipidemia, unspecified; E03.9 Hypothyroidism, unspecified; K21.9 Gastro-esophageal reflux disease without esophagitis; M81.0 Age-related osteoporosis without current pathological fracture; Z86.010 Personal history of colon polyps; Z96.659 Presence of unspecified artificial knee joint; Z80.8 Family history of malignant neoplasm of other organs or systems; Z80.9 Family history of malignant neoplasm, unspecified; Z83.3 Family history of diabetes mellitus; Z82.49 Family history of ischemic heart disease and other diseases of the circulatory system; Z79.82 Long term (current) use of aspirin; Z79.899 Other long term (current) drug therapy; K64.8 Other hemorrhoids; K64.4 Residual hemorrhoidal skin tags; Z66 Do not resuscitate

== ENCOUNTER → 2017-02-02 | Day surgery (SDC) | payer OTHER ==
[2017-01-26 08:58] VITALS: Ht 152.4 cm; Wt 75.0 kg
[~2017-02-02] VITALS: Ht 152.4 cm; Wt 75.0 kg
[~2017-02-02] MED LIST changes: -ASPCH81X PO; +ASPI81TA28 PO; +ATROPINE SULFATE 0.1 MG/ML 5ML SYR IV PRN; +BUPIVACAINE 0.5 % 5 MG/1 ML PF 10ML VIAL ONE; -CALC-220 PO; +CEFAZOLIN 1000MG IV PUSH 5 ML IV SCH; -CRAN500C2 PO; +CRS10 PO; +EpHEDrine SULFATE INJ 50 MG/ML AMP IV PRN; +FAMO20TA11 PO; +FENTANYL CITRATE INJ 50 MCG/1 ML 2 ML VIAL IV PRN; +FENTANYL CITRATE INJ 50 MCG/1 ML 2 ML VIAL ONE; +LACTATED RINGER'S 1000ML 1,000 ML IV SCH; +LIDOCAINE HCL 1% 20 ML VIAL ONE; +LIDOCAINE HCL 2% 2 ML VIAL (20MG/ML) ONE; +LISI-787 PO; +LORA-749 PO; -LSN/2025 PO; -MAGN400T24 PO; +MIDAZOLAM HCL 1 MG/ML 2ML VIAL ONE; -MULT-188 PO; -OMEG500C2 PO; +ONDANSETRON INJ 2 MG/ML 2 ML VIAL IV PRN; +OXYCODONE/ACETAMINOPHEN 5-325 TAB PO PRN; -PRLSR20 PO; +PROPOFOL IV EMULSION 10 MG/ML 20 ML VIAL IV ONE; +SODIUM CHLORIDE 0.9% 1000ML 1,000 ML IV SCH; +TRAM-10 PO
--- NOTE | 2017-02-02 07:22 | History & Physical Bridge - SC ---
H&P Re-Evaluation Bridge Note: I have examined the patient, reviewed the History & Physical and in the interval since the performance of the History & Physical I have noted the following changes of clinical significance: No changes noted
--- NOTE | 2017-02-02 08:04 | [facility] Post Operative Brief Note ---
Immediate Operative Summary Operative Date Feb 02, 2017. Pre-Operative Diagnosis Right Ring Trigger Finger Post-Operative Diagnosis Same Procedure(s) Performed Right Ring Trigger Finger Release Surgeon Dr. Pace Nutrition Counselor Surgeon(s) Baron Oviedo PA-C Estimated Blood Loss 0ml Findings ABOVE Specimens None Anesthesia LOCAL IV SEDATION Complication(s) None Disposition
--- NOTE | 2017-02-02 08:07 | Discharge Instructions-SurgCtr ---
Discharge Instructions Date of Service Feb 02, 2017. Visit Reason for Visit: Right Ring Trigger Finger Discharge Discharge Diagnosis / Problem: SAME ABOVE Discharge Goals Goal(s): Decrease discomfort, Improve function Activity Recommendations Activity Limitations: as noted below Lifting Limitations: gradually increase as tolerated Exercise/Sports Limitations: until after follow-up appointment Shower/Bathe: tomorrow Anesthesia . Post Anesthesia Instructions: If you have had General Anesthesia or IV Sedation: * Do not drive today. * Resume driving when surgeon permits. * Do not make important decisions or sign legal documents today. * Call surgeon for: 1. Temperature elevations greater than 101 degrees F. 2. Uncontrollable pain. 3. Excessive bleeding. 4. Persistent nausea and vomiting. 5. Medication intolerance (nausea, vomiting or rash). * For nausea and vomiting use only clear liquids such as: tea, soda, bouillon until nausea subsides, then gradually increase diet as tolerated. * If you have any concerns or questions, call your surgeon's office. If physician is unavailable and it is an emergency, call 911 or go to the nearest emergency room. . Instructions / Follow-Up Instructions / Follow-Up MEDICATIONS: * Resume previous medications unless instructed otherwise by your surgeon. * Always take pain medication on a full stomach or with food to avoid upset stomach. * Do not drink alcohol or drive while taking narcotics. * Ibuprofen or Tylenol may be taken if narcotic not needed. SPECIAL CARE INSTRUCTIONS: __ None _X_ Keep extremity elevated and iced x 48 hours; apply ice 20-30 minutes 8-10 times/day. May remove at night. __ Sling __24 hrs/day __ Remove at night __ Shoulder Immobilizer __ 24 hrs/day __ Remove at night _X_ Dressing __ Maintain until seen in office, may shower with plastic over site _X_ Remove dressings in 24-48 hours and then may shower _X_ Cover incisions with band-aids after showering __ Do not remove steri-strips Call physician if chills or temperature rises above 102 degrees or pain unrelieved by prescribed pain medications at . . Diet Recommendations Home Diet: resume previous diet Procedures Procedures Performed: Right Ring Trigger Finger Release Pending Studies Studies pending at discharge: no Medical Emergencies . Who to Call and When: Medical Emergencies: If at any time you feel your situation is an emergency, please call 911 immediately. . Non-Emergent Contact Non-Emergency issues call your: Primary Care Provider . . "Provider Documentation" section prepared by Javid Oviedo. .
--- NOTE | 2017-02-02 08:27 | OPERATIVE REPORT ---
DATE OF OPERATION: 02/02/2017 PREOPERATIVE DIAGNOSIS: Right ring trigger finger. POSTOPERATIVE DIAGNOSIS: Same. PROCEDURE: Release A1 rj, right ring finger. SURGEON: Bigg Pace MD PINMAKER: Javid Oviedo PA-C. ANESTHESIOLOGIST: Javid Gamboa MD ANESTHESIA: Local with IV sedation. DRAINS: None. COMPLICATIONS: None. CONDITION: The patient tolerated the procedure well and returned to the recovery room in apparent satisfactory condition. INDICATIONS FOR SURGERY: Marisol is an 82-year-old female who has had triggering in the right ring finger that has been painful. We would like to go ahead and proceed with surgery. Procedure, expected outcomes and side effects, and risks were all explained in detail. DESCRIPTION OF PROCEDURE: The patient was taken to the OR at which time she was placed supine on the operating table and given IV sedation by the anesthesia department. Right thumb was prepped and draped in the usual sterile fashion for surgery. We went ahead and infiltrated the anticipated incision site with 1% Xylocaine and then put a forearm tourniquet up to 250 mmHg. We made a transverse incision over the A1 rj, dissected down with loupe magnification and with direct observation, it was divided, the A1 rj with an 11 blade and a tenotomy scissors. The finger was taken through a range of motion and no longer triggering. The wound then was irrigated. Incision closed with interrupted 4-0 nylon sutures. Marcaine without epinephrine was placed in the skin edges. We placed a sterile dressing of Xeroform, 2 x 2, soft roll and a Coban and returned back to recovery room in apparent satisfactory condition. I attest to the content of the Intraoperative Record and any orders documented therein. Any exception s are noted below.
--- NOTE | 2017-02-02 08:49 | Anesthesiology Progress Note ---
Anesthesia Post Op Note Date & Time Feb 02, 2017 at 08:49 Vital Signs Pain Intensity: 0 Vital Signs Past 12 Hours Date Time Temp Pulse Resp B/P (MAP) Pulse Ox O2 Delivery O2 Flow Rate FiO2 02/02/17 08:04 36.2 88 16 108/66 (80) 94 Room Air 02/02/17 06:50 36.4 88 20 112/70 (84) 94 Room Air Notes Mental Status: alert / awake / arousable, participated in evaluation Pt Amnestic to Procedure: Yes Nausea / Vomiting: adequately controlled Pain: adequately controlled Airway Patency, RR, SpO2: stable & adequate BP & HR: stable & adequate Hydration State: stable & adequate Anesthetic Complications: no major complications apparent
[2017-02-02 08:51] VITALS: BP 135/66; PULSE 79; O2SAT 94
== END | disposition home or self-care (01) ==
LOC: X.SURG 06:37
PROVIDERS: ATTEND Orthopaedic Surgery
DX: M65.341 Trigger finger, right ring finger (principal); I10 Essential (primary) hypertension; G47.33 Obstructive sleep apnea (adult) (pediatric); E78.5 Hyperlipidemia, unspecified; E03.9 Hypothyroidism, unspecified; E78.00 Pure hypercholesterolemia, unspecified; K21.9 Gastro-esophageal reflux disease without esophagitis; Z90.49 Acquired absence of other specified parts of digestive tract; Z96.659 Presence of unspecified artificial knee joint